=== PATIENT | male | born 1955 | race Caucasian/White ===

== ENCOUNTER 2022-11-25 15:11 | Inpatient (IN) | payer OTHER ==
[~2022-11-25] VITALS: Ht 167.6 cm; Wt 81.8 kg
[~2022-11-25 15:11] MED LIST: INSLIS75I; METF500; Percocet 5-3251 EACH PO
[2022-11-25 15:43] LABS: BASOPHILS ABSOLUTE AUTO 0.12 K/mm3 (0.00-0.23); BASOPHILS PERCENT AUTO 1 % (0-2); EOSINOPHILS PERCENT AUTO 6 % (0-6); Hemoglobin 16.2 g/dL (13.5-17.5); IMMATURE GRAN ABSOLUTE AUTO 0.04 K/mm3 (0.00-0.10); IMMATURE GRAN PERCENT AUTO 0 % (0-1); LYMPHOCYTES ABSOLUTE AUTO 3.38 K/mm3 (0.84-5.20); LYMPHOCYTES PERCENT AUTO 31 % (21-46); MONOCYTES ABSOLUTE AUTO 0.95 K/mm3 (0.16-1.47); MONOCYTES PERCENT AUTO 9 % (4-13); Mean Corpuscular HGB 28.8 pg (26.0-34.0); Mean Corpuscular HGB Conc 33.8 g/dL (31.5-36.5); Mean Corpuscular Volume 85 fL (80-100); Mean Platelet Volume 9.6 fL (9.1-12.4); NEUTROPHILS ABSOLUTE AUTO 5.88 K/mm3 (1.96-9.15); NEUTROPHILS PERCENT AUTO 54 % (41-73); Platelet Count 365 K/mm3 (150-400); RDW Coefficient Variation 13.2 % (11.7-14.2); RDW Standard Deviation 40.9 fL (35.1-46.3); Red Blood Cell Count 5.62 M/mm3 (4.30-5.90); White Blood Cell Count 10.97 K/mm3 (4.00-11.30)
[2022-11-25] MEDS ORDERED: Amitriptyline H50 MG PO (15:43)
[2022-11-25] MEDS ORDERED: DIVA500EC PO (15:44)
[2022-11-25] MEDS ORDERED: AMLODIPINE BESYL5 MG PO (15:44)
[2022-11-25] MEDS ORDERED: ATOR40TA PO (15:44)
[2022-11-25] MEDS ORDERED: JARDIANCE25 MG PO (15:45)
[2022-11-25] MEDS ORDERED: DONE5 PO (15:45)
[2022-11-25] MEDS ORDERED: HYDCHL25 PO (15:45)
[2022-11-25] MEDS ORDERED: EUTHYROX50 MCG PO (15:46)
[2022-11-25] MEDS ORDERED: LEVOTHYROXINE150 MC9 PO (15:46)
[2022-11-25] MEDS ORDERED: METF500 PO (15:46)
[2022-11-25 16:10] LABS: Alanine Aminotransfer (ALT/SGP 36 U/L (12-78); Alk Phos 73 U/L (50-136); Anion Gap 5 mmol/L (6-16); Aspartate Aminotrans (AST/SGOT 18 U/L (12-37); Bilirubin, Total 0.3 mg/dL (0.1-1.0); Blood Urea Nitrogen 12 mg/dL (8-24); Bun/Creatinine Ratio 11.8 (12.0-20.0); CO2, Blood 30 mmol/L (21-32); Calcium, Blood 9.6 mg/dL (8.5-10.1); Chloride, Blood 102 mmol/L (98-108); Creatinine, Blood 1.02 mg/dL (0.60-1.20); Globulin, Blood 4.1 g/dL (2.2-4.0); Glomerular Filtration Rate 81 (60-); Glucose, Blood 132 mg/dL (70-99); Potassium, Blood 3.6 mmol/L (3.5-5.5); Sodium, Blood 137 mmol/L (136-145); Total Protein, Blood 8.1 g/dL (6.4-8.2)
[2022-11-25 16:13] LABS: Ethanol (Alcohol), Blood, Med <3 mg/dL
[2022-11-25 17:30] LABS: U Amphetamine Screen Not Detected; U Barbituate Screen Not Detected; U Benzodiazapine Screen Not Detected; U Buprenorphine Screen Not Detected; U Cannabinoids Screen Not Detected; U Cocaine Screen Not Detected; U Methadone Screen Not Detected; U Methamphetamine Screen Not Detected; U Opiates Screen Not Detected; U Oxycodone Screen Not Detected; U Phencyclidine Screen Not Detected; U Propoxyphene Screen Not Detected
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
[2022-11-26 04:51] LABS: CHOL/HDL RATIO 3.7; Cholesterol 141 mg/dL (50-200); HDL Cholesterol 38 mg/dL (>39); LDL/HDL RATIO 1.8; Low Density Lipoprotein Chol 70 mg/dL (0-110); Triglycerides 164 mg/dL (30-160); Very Low Density Lipoprot Chol 32 mg/dL (6-32)
[2022-11-26 11:24] LABS: Valproic Acid 92.3 ug/mL (50.0-100.0)
[2022-11-26] MEDS ORDERED: DIVA500ER PO (13:42)
[2022-11-26] MEDS ORDERED: DONE5 PO (13:43)
[2022-11-26] MEDS ORDERED: HYDCHL25 PO (13:44)
[2022-11-26] MEDS ORDERED: JARDIANCE25 MG PO (13:44)
[2022-11-26] MEDS ORDERED: LEVSOD100 PO (13:47)
[2022-11-26] MEDS ORDERED: ASPI81CH PO (14:39)
[2022-11-26] MEDS ORDERED: PANT40 PO (14:40)
[2022-11-26] MEDS ORDERED: CLOP75 PO (14:40)
--- NOTE | 2022-11-26 16:21 | NUR ---
DISCHARGE- PT BROUGHT DOWN IN WC WITH HIS FOR DC. NEW RX FAXED TO [facility] PER REQUEST. ALL QUESTIONS/CONCERNS ANSWERED. PT LEFT WITH ALL BELONGINGS.
== END 2022-11-26 15:18 | disposition home health service (06) | DRG 69 ==
LOC: ER 15:11 → MEDS 19:00
PROVIDERS: Family Medicine; Nurse Practitioner Acute Care; Physician Assistant; ADMIT Internal Medicine
DX: G45.9 Transient cerebral ischemic attack, unspecified (principal); R47.01 Aphasia; E11.9 Type 2 diabetes mellitus without complications; E03.9 Hypothyroidism, unspecified; I10 Essential (primary) hypertension; F03.90 Unspecified dementia, unspecified severity, without behavioral disturbance, psychotic disturbance, mood disturbance, and anxiety; R47.1 Dysarthria and anarthria; R47.81 Slurred speech; R29.810 Facial weakness; G43.809 Other migraine, not intractable, without status migrainosus; E78.5 Hyperlipidemia, unspecified; M79.2 Neuralgia and neuritis, unspecified; G89.29 Other chronic pain; Z79.899 Other long term (current) drug therapy; Z79.84 Long term (current) use of oral hypoglycemic drugs; Z87.820 Personal history of traumatic brain injury; Z79.02 Long term (current) use of antithrombotics/antiplatelets
CPT/HCPCS: 36415; 36416; 70450; 70496; 70498; 80053; 80061; 80164; 82947; 83036; 85025; 93005; 93010; 93306; 96361; 96374-59; 97116; 97161; 99285-25; A9270; G0480; J1650; J2765; J7030; Q9967